=== PATIENT | male | born 1995 | race Caucasian/White ===

== ENCOUNTER 2018-03-27 16:25 | Emergency (ER) | payer BC ==
[2018-03-27 17:37] LABS: ABS Basophils 0.1 10^3/ul (0-0.2); ABS Eosinophils 0 10^3/ul (0-0.6); ABS Monocytes 0.4 10^3/ul (0-0.8); ABS Neutrophils 4.5 10^3/ul (1.5-7.7); ABS Nucleated RBC 0 10^3/ul; Eosinophil % 0.8 %; Hematocrit 46 % (42-52); Hemoglobin 15.6 g/dl (14.0-18.0); Lymphocyte % 16.2 %; Mean Corpuscular HGB Conc 34 g/dl (31-36); Mean Corpuscular Hemoglobin 30 pg (27-31); Mean Corpuscular Volume 86 fL (80-94); Mean Platelet Volume 9.3 fL (7.4-10.4); Nucleated Red Blood Cells % 0.1; Platelet Count 264 10^3/ul (150-450); Red Blood Count 5.29 10^6/ul (4.00-5.40); Red Cell Distribution Width 14 % (10.5-15)
[2018-03-27 17:58] LABS: ALT 11 U/L (7-52); AST 15 U/L (13-39); Albumin 5.2 g/dL (3.2-5.2); Albumin/Globulin Ratio 2.2 (1-3); Alkaline Phosphatase 94 U/L (34-104); Anion Gap 7 mmol/L (2-11); BUN/Creatinine Ratio 8.2 (8-20); Blood Urea Nitrogen 7 mg/dL (6-24); C Reactive Protein < 1.00 mg/L (<8.01); CO2 Carbon Dioxide 28 mmol/L (22-32); Calcium 9.5 mg/dL (8.6-10.3); Chloride 105 mmol/L (101-111); EGFR Non-African American 110.7 (>60); Globulin 2.4 g/dL (2-4); Glucose 101 mg/dL (70-100); Potassium 4.2 mmol/L (3.5-5.0); Sodium 140 mmol/L (135-145); Total Protein 7.6 g/dL (6.4-8.9)
[2018-03-27 18:20] LABS: TSH (Thyroid Stimulating Horm) 2.23 mcIU/mL (0.34-5.60)
--- NOTE | 2018-03-27 18:34 | ED ---
Palpitations / Dysrhythmia - HPI Summary HPI Summary: Patient complains of intermittent sternal chest pain, palpitations, sensation of SOB and pain present. 1 week. Symptoms are worse today. CP contrast minutes at a time, described as intermittent, sternal, random onset, tightness. Denies any change in activity level or decrease in endurance. Denies trauma, fever, cough, sore throat, N/V/D, abdominal pain, change in urine, change in BM. Medical history is none. Nonsmoker. Denies illegal illegal stimulants, or recreational drugs. - History of Current Complaint Chief Complaint: EDChestPainROMI Time Seen by Provider: 03/27/18 16:40 Hx Obtained From: Patient Onset/Duration: Sudden Onset, Lasting Days Timing: Intermittent Episodes Lasting: Severity Initially: Moderate Severity Currently: None Character: Fast Aggravating: Nothing Alleviating: Rest Associated Signs & Symptoms: Chest Pain, Shortness of Breath - Allergy/Home Medications Allergies/Adverse Reactions: Allergies Allergy/AdvReac Type Severity Reaction Status Date / Time No Known Allergies Allergy Verified 03/27/18 14:56 PMH/Surg Hx/FS Hx/Imm Hx Endocrine/Hematology History: Denies: Hx Anticoagulant Therapy Cardiovascular History: Denies: Hx Cardiac Arrest History: Denies: Hx Dialysis Musculoskeletal History: Denies: Hx Gout Sensory History: Denies: Hx Eye Prosthesis Opthamlomology History: Denies: Hx Legally Blind EENT History: Denies: Hx Deafness Neurological History: Denies: Hx Dementia Psychiatric History: Denies: Hx Autism Infectious Disease History: No Infectious Disease History: Denies: Traveled Outside the [place] in Last 30 Days - Social History Occupation: Student Alcohol Use: Occasionally Substance Use Type: Reports: None Smoking Status (MU): Never Smoked Tobacco Review of Systems Constitutional: Negative Eyes: Negative ENT: Negative Positive: Chest Pain Positive: Shortness Of Breath Gastrointestinal: Negative Genitourinary: Negative Musculoskeletal: Negative Skin: Negative Neurological: Negative Psychological: Normal All Other Systems Reviewed And Are Negative: Yes Physical Exam - Summary Physical Exam Summary: chest pain not reproducible. Lung sounds clear to auscultation. Regular rate and rhythm. Triage Information Reviewed: Yes Vital Signs On Initial Exam: Initial Vitals Temp Pulse Resp BP Pulse Ox 99.3 F 107 18 133/88 98 03/27/18 16:27 03/27/18 16:27 03/27/18 16:27 03/27/18 16:27 03/27/18 16:27 Vital Signs Reviewed: Yes Appearance: Positive: Well-Appearing Skin: Positive: Warm Head/Face: Positive: Normal Head/Face Inspection Eyes: Positive: Normal ENT: Positive: Normal ENT inspection Neck: Positive: Supple Respiratory/Lung Sounds: Positive: Clear to Auscultation Cardiovascular: Positive: Normal Abdomen Description: Positive: Nontender Musculoskeletal: Positive: Normal Neurological: Positive: Normal Psychiatric: Positive: Normal AVPU Assessment: Alert - [place] Coma Scale Best Eye Response: 4 - Spontaneous Best Motor Response: 6 - Obeys Commands Best Verbal Response: 5 - Oriented Coma Scale Total: 15 Diagnostics - Vital Signs Vital Signs Temp Pulse Resp BP Pulse Ox 03/27/18 16:27 99.3 F 107 18 133/88 98 - Laboratory Lab Results: Lab Results 03/27/18 03/27/18 03/27/18 Range/Units 17:30 17:30 17:30 WBC 6.0 (3.5-10.8) 10^3/ul RBC 5.29 (4.00-5.40) 10^6/ul Hgb 15.6 (14.0-18.0) g/dl Hct 46 (42-52) % MCV 86 (80-94) fL MCH 30 (27-31) pg MCHC 34 (31-36) g/dl RDW 14 (10.5-15) % Plt Count 264 (150-450) 10^3/ul MPV 9.3 (7.4-10.4) fL Neut % (Auto) 75.0 % Lymph % (Auto) 16.2 % [place] % (Auto) 7.1 % Eos % (Auto) 0.8 % Baso % (Auto) 0.9 % Absolute Neuts (auto) 4.5 (1.5-7.7) 10^3/ul Absolute Lymphs (auto) 1.0 (1.0-4.8) 10^3/ul Absolute Monos (auto) 0.4 (0-0.8) 10^3/ul Absolute Eos (auto) 0 (0-0.6) 10^3/ul Absolute Basos (auto) 0.1 (0-0.2) 10^3/ul Absolute Nucleated RBC 0 10^3/ul Nucleated RBC % 0.1 D-Dimer, Quantitative < 200 (Less Than 230) ng/mL Sodium 140 (135-145) mmol/L Potassium 4.2 (3.5-5.0) mmol/L Chloride 105 (101-111) mmol/L Carbon Dioxide 28 (22-32) mmol/L Anion Gap 7 (2-11) mmol/L BUN 7 (6-24) mg/dL Creatinine 0.85 (0.67-1.17) mg/dL Est GFR ( Amer) 134.0 (>60) Est GFR (Non-Af Amer) 110.7 (>60) BUN/Creatinine Ratio 8.2 (8-20) Glucose 101 H (70-100) mg/dL Calcium 9.5 (8.6-10.3) mg/dL Total Bilirubin 0.60 (0.2-1.0) mg/dL AST 15 (13-39) U/L ALT 11 (7-52) U/L Alkaline Phosphatase 94 (34-104) U/L Troponin I 0.00 (<0.04) ng/mL C-Reactive Protein < 1.00 (<8.01) mg/L Total Protein 7.6 (6.4-8.9) g/dL Albumin 5.2 (3.2-5.2) g/dL Globulin 2.4 (2-4) g/dL Albumin/Globulin Ratio 2.2 (1-3) TSH 2.23 (0.34-5.60) mcIU/mL Result Diagrams: 03/27/18 17:30 03/27/18 17:30 Lab Statement: Any lab studies that have been ordered have been reviewed, and results considered in the medical decision making process. Course/Dx - Course Course Of Treatment: Patient complains of intermittent sternal chest pain, palpitations, sensation of SOB and pain present. 1 week. Symptoms are worse today. CP contrast minutes at a time, described as intermittent, sternal, random onset, tightness. Denies any change in activity level or decrease in endurance. Denies fever, cough, sore throat, N/V/D, abdominal pain, change in urine, change in BM, trauma. Medical history is none. Nonsmoker. Denies illegal illegal stimulants, or recreational drugs. Physical exam: chest pain not reproducible. Lung sounds clear to auscultation. Regular rate and rhythm. Vital signs within normal limits. Labs unremarkable. Chest x-ray unremarkable. EKG sinus rhythm. D-dimer negative. Follow up with cardiology for Holter monitor. - Diagnoses Provider Diagnoses: Palpitation Discharge - Sign-Out/Discharge Documenting (check all that apply): Patient Departure Patient Received Moderate/Deep Sedation with Procedure: No - Discharge Plan Condition: Stable Disposition: HOME Patient Education Materials: Heart Palpitations (ED) Referrals: No Primary Care Phys,NOPCP [Primary Care Provider] - Danny Salgado MD [Medical Doctor] - Additional Instructions: Follow-up with primary care and cardiology Dr. Salgado for Holter monitor. Return to the ED for any new or worsening symptoms. - Billing Disposition and Condition Condition: STABLE Disposition: Home
[2018-03-27 18:49] VITALS: BP 138/91
== END 2018-03-27 18:49 | disposition home or self-care (01) ==
LOC: ED 16:25
DX: R00.2 Palpitations (principal); R06.02 Shortness of breath; R07.2 Precordial pain
CPT/HCPCS: 36415; 71046; 80053; 84443; 84484; 85025; 85379; 86140; 93005; 99282